=== PATIENT | female | born 1965 | race Caucasian/White ===

== ENCOUNTER 2022-02-07 14:18 | Emergency (ER) | payer MEDICAID ==
[~2022-02-07] VITALS: Ht 149.9 cm; Wt 64.0 kg
[2022-02-07] MEDS ORDERED: ONDANSETRON HCL 4MG/2ML INJ IV STA (14:37)
[2022-02-07] MEDS ORDERED: MECLIZINE 25MG TABLET PO ONE (14:45)
[2022-02-07] MEDS ORDERED: SODIUM CHLORIDE 0.9% 1,000 ML IV ONE (14:45)
[2022-02-07 15:04] LABS: BASOPHILS % 0.3 % (0.0-2.0); HEMATOCRIT. 47.5 % (36.0-48.0); HEMOGLOBIN. 15.2 g/dL (12.0-16.0); LYMPHOCYTES % 10.2 % (20.0-50.0); MEAN CORPUSCULAR HEMOGLOBIN 24.9 pg (28.0-32.0); MEAN CORPUSCULAR VOLUME 78.1 fL (81.0-99.0); MEAN PLATELET VOLUME 8.6 fl (7.4-10.4); MONOCYTES % 3.5 % (2.0-8.0); PLATELET 276 x1000/uL (130-400); RED BLOOD CELL COUNT 6.08 mill/uL (4.2-5.4)
[2022-02-07 15:11] LABS: CHLORIDE 108 mEq/L (98-107)
[2022-02-07] MEDS ORDERED: MECL-115 PO (16:51)
[2022-02-07] MEDS ORDERED: ONDA4TAB11 PO (16:51)
[2022-02-07 17:14] VITALS: BP 140/50
== END 2022-02-07 17:15 | disposition home or self-care (01) ==
LOC: ER 14:28
DX: H81.10 Benign paroxysmal vertigo, unspecified ear (principal); R03.0 Elevated blood-pressure reading, without diagnosis of hypertension
CPT/HCPCS: 36415; 80053; 85025; 93005; 96374; 99284; J2405; J7030; J8597